=== PATIENT | male | born 1985 ===

== ENCOUNTER 2017-03-12 14:02 | Emergency (ER) | payer OTHER ==
[2017-03-12 14:12] VITALS: BP 120/56; PULSE 71; RESP 18; TEMP 97.8; O2SAT 99
[2017-03-12] MEDS ORDERED: Sodium Chloride 0.9% 1,000 ML IV STA (14:26)
--- NOTE | 2017-03-12 14:29 | ED PDOC ---
HPI: Abdomen Time Seen by Provider: 03/12/17 14:16 Chief Complaint (Nursing): GI Problem Chief Complaint (Provider): Vomiting History Per: Patient History/Exam Limitations: no limitations Onset/Duration Of Symptoms: Days (Today) Additional Complaint(s): Pt. with vomiting x8 today. Had aden and eggs which he does not eat usually yesterday No diarrhea. Had abd pain x 2, but gone currently. No numbness, tingles, weakness, headaches, dizziness. No back pain. No chest pain. Had etoh and marijuana last nite. Past Medical History Reviewed: Nursing Documentation, Vital Signs Vital Signs: Last Vital Signs Temp 97.8 F 03/12/17 14:08 Pulse 71 03/12/17 14:08 Resp 18 03/12/17 14:08 BP 120/56 L 03/12/17 14:08 Pulse Ox 99 03/12/17 14:30 - Medical History PMH: No Chronic Diseases - Surgical History Surgical History: Appendectomy - Family History Family History: States: Unknown Family Hx - Social History Current smoker - smoking cessation education provided: No Alcohol: Occasional Drugs: Cannabis - Allergies Allergies/Adverse Reactions: Allergies Allergy/AdvReac Type Severity Reaction Status Date / Time No Known Allergies Allergy Verified 03/12/17 14:08 Review of Systems ROS Statement: Except As Marked, All Systems Reviewed And Found Negative Gastrointestinal: Positive for: Nausea, Vomiting, Abdominal Pain Physical Exam - Reviewed Nursing Documentation Reviewed: Yes Vital Signs Reviewed: Yes - Physical Exam Appears: Positive for: Non-toxic, No Acute Distress Head Exam: Positive for: ATRAUMATIC, NORMAL INSPECTION, NORMOCEPHALIC Skin: Positive for: Normal Color, Warm, DRY Eye Exam: Positive for: EOMI, Normal appearance, PERRL ENT: Positive for: Normal ENT Inspection Neck: Positive for: Normal, Painless ROM Cardiovascular/Chest: Positive for: Regular Rate, Rhythm Respiratory: Positive for: CNT, Normal Breath Sounds Gastrointestinal/Abdominal: Positive for: Bowel Sounds, Soft. Negative for: Tenderness, Distended, Guarding, Rebound Back: Positive for: Normal Inspection. Negative for: L CVA Tenderness, R CVA Tenderness Extremity: Positive for: Normal ROM. Negative for: Tenderness, Pedal Edema Neurologic/Psych: Positive for: Alert, Oriented - Laboratory Results Result Diagrams: 03/12/17 16:04 03/12/17 16:04 Interpretation Of Abn Labs: bun 24 - ECG O2 Sat by Pulse Oximetry: 99 Pulse Ox Interpretation: Normal - Progress ED Course And Treament: 1700: Stable. AAOx3. No pain. Tolerated PO well. Ambulated with no issues. Likely food related. Fu with pcp. Disposition - Clinical Impression Clinical Impression: Vomiting, Dehydration - Patient ED Disposition Is Patient to be Admitted: No Counseled Patient/Family Regarding: Studies Performed, Diagnosis, Need For Followup - Disposition Referrals: [facility] [Outside] - 03/13/17 Disposition: Routine/Home Disposition Time: 17:18 Condition: IMPROVED Additional Instructions: Return if not better in 3 days. Instructions: Dehydration (ED), Acute Nausea and Vomiting (ED) Forms: [facility] ED School/Work Excuse, [facility] (Romanian) Print Language: YORUBA
[2017-03-12 16:20] LABS: BASO % 0.1 % (0.0-2.0); HEMATOCRIT 46.3 % (35.0-51.0); LYMPH # 0.9 K/uL (1.0-4.3); LYMPH % 9.6 % (20.0-40.0); MEAN CELL VOLUME 86.2 fl (80.0-94.0); MEAN CORPUSCULAR HEMOGLOBIN 27.7 pg (27.0-31.0); MEAN CORPUSCULAR HGB CONC 32.1 g/dL (33.0-37.0); MONO # 0.3 K/uL (0.0-0.8); MONO % 3.2 % (0.0-10.0); NEUT # 8.2 K/uL (1.8-7.0); NEUT % 87.1 % (50.0-75.0); NRBC % 0.1 % (0.0-0.0); PLATELET COUNT 242 K/uL (130-400); RED CELL DISTRIBUTION WIDTH 13.8 % (11.5-14.5); WHITE BLOOD COUNT 9.4 K/uL (4.8-10.8)
[2017-03-12 16:38] LABS: ALKALINE PHOSPHATASE 84 U/L (38-126); ALT/SGPT 54 U/L (21-72); AST/SGOT 36 U/L (17-59); BILIRUBIN,TOTAL 0.8 mg/dl (0.2-1.3); BLOOD UREA NITROGEN 24 mg/dl (9-20); CALCIUM 10.1 mg/dL (8.4-10.2); CARBON DIOXIDE 25 mmol/L (22-30); CHLORIDE 104 mmol/L (98-107); GFR AFRICAN-AMERICAN > 60; GLUCOSE,RANDOM 108 mg/dL (75-110); LIPASE 63 U/L (23-300); POTASSIUM 4.5 MMOL/L (3.6-5.0); SODIUM 145 mmol/l (132-148); TOTAL PROTEIN 9.2 G/DL (6.3-8.2)
[2017-03-12 16:44] LABS: ALB/GLOB RATIO 1.4 (1.0-2.1)
[2017-03-12 17:30] LABS: NEUTROPHIL 83 % (42-75); TOTAL CELLS COUNTED 100
== END 2017-03-12 17:40 | disposition home or self-care (01) ==
LOC: H.ER 14:02
DX: E86.0 Dehydration (principal); R11.10 Vomiting, unspecified
CPT/HCPCS: 80053; 83690; 85025; 96374; 99284; J2405; J7040